=== PATIENT | female | born 1945 | race Caucasian/White ===

== ENCOUNTER → 2016-11-15 | Day surgery (SDC) | payer OTHER ==
[~2016-11-15] VITALS: Ht 160 cm; Wt 78.0 kg
[~2016-11-15] MED LIST: LITHIUM CARBON300 M5; OLANZAPINE5 M2; PRAVASTATIN SOD40 M2; SYNTHROID125 MCG
--- NOTE | 2016-11-22 12:14 | Operative Report ---
Operative/Inv Procedure Report Surgery Date: 11/15/16 Name of Procedure: D&C hysteroscopy Pre-Operative Diagnosis: Postmenopausal bleeding Post-Operative Diagnosis: Same Estimated Blood Loss: less than 50ml Surgeon/Payroll Accounting Clerk: WILLIE GARCIA MD Anesthesia: moderate sedation Operative/Procedure Note Note: Patient was taken to the operating room placed in dorsal supine position. After adequate anesthesia, patient was prepped and draped for surgery. Examination under anesthesia was performed. CO2 tenaculum was placed on the anterior lip of the cervix gentle downward traction was used. The cervix was dilated 29 Hegar to left insertion of the hysteroscope. Under direct visualization to hysteroscopy was performed using gas hysteroscope was removed and endocervical curettage was performed. And endometrial curettage was performed. All instruments removed from the vagina. The counts were correct the patient was awakened from anesthesia. And transported to recovery room awake and alert.
== END ==
LOC: STS 04:18
DX: N95.0 Postmenopausal bleeding (principal); N72 Inflammatory disease of cervix uteri; E03.9 Hypothyroidism, unspecified
CPT/HCPCS: 88305; 93005; 93010; J0131; J2250